=== PATIENT | female | born 1945 | race Caucasian/White ===

== ENCOUNTER → 2017-05-04 | Outpatient (CLI) | payer MEDICARE, OTHER ==
[~2017-05-04] MED LIST: ALPR-445 PO; ALPR-459 PO; AMI10; AMI10 PO; AMIT-104 PO; AZIT-1 PO; CALC-635 PO; CALC3.7S2 ENA; CAR6.25 PO; CHOL2000 PO; CHOL200022 PO; CITA-139 PO; DIA5 PO; DIAZ-308 PO; DOC100 PO; ERGO500037 PO; ESTR1.2525 PO; FLU10 PO; FLU180SY9 IM; FLU20 PO; FLU45SYR25 IM ONLY; GUAI600T57 PO; IBU200 PO; IBUP-1618 PO; IBUP400T13 PO; LACT1CAP6 PO; LISI-362 PO; LISI20TA29 PO; LOP2 PO; LORA-802 PO; MIR15 PO; MIRT-22 PO; MOM PO; MOMR; MORIR15 PO; MORS15 PO; MULT-885 PO; NEBI2.5T PO; NEBI2.5T5 PO; NEBI5TAB5 PO; OSC600 PO; OXYGEN INH; OXYGENHOME INH; PER PO; PNEU0.5D3 IM; POLY17PO33 PO; SACC250C PO; SIM20 PO; SIMV-42 PO; SIMV-49 PO; SIMV-54 PO; TRAM-627 PO; VITA1CAP46 PO; ZOLE5INF IV; [UNRECOGNIZED DRUG - CODE] PO; [UNRECOGNIZED DRUG - OTHER]; [UNRECOGNIZED DRUG - OTHER]
== END ==
LOC: RESP 01:52
PROVIDERS: ATTEND Internal Medicine
DX: J98.4 Other disorders of lung (principal)
CPT/HCPCS: 94060; 94726; 94729

== ENCOUNTER → 2017-05-06 | Outpatient (CLI) | payer MEDICARE, OTHER | LOC: CT 14:42 | PROVIDERS: ATTEND Internal Medicine | DX: Z02.9 Encounter for administrative examinations, unspecified (principal) ==

== ENCOUNTER → 2017-05-11 | Outpatient (CLI) | payer MEDICARE, OTHER ==
--- NOTE | 2017-05-11 15:45 | RADIOLOGY IMAGING REPORT ---
FACILITY: [facility] [place] PATIENT NAME: Taylor Norris : 1945 MR: [id number] V: [id number] EXAM DATE: ORDERING PHYSICIAN: LATASHA SIMPSON TECHNOLOGIST: Location: [facility] Patient: Taylor Norris : 1945 Visit/Account:[id number] Date of Sevice: 05/11/2017 CHEST W/O CONTRAST History: Lung nodule TECHNIQUE: Contiguous axial images were performed through the chest to the level of the adrenal gla nds. No IV contrast was administered. Coronal and sagittal reformatting was also performed. Dose Lowe ring Technique One of the following dose optimization techniques was utilized in the performance of this exam: Autom ated exposure control; adjustment of the mA and/or kV according to the patient's size; or use of an i terative reconstruction technique. Specific details can be referenced in the facility's radiology C T exam operational policy. COMPARISON STUDIES: December 10, 2016. Lungs / Pleura: The subtle interstitial prominence in the upper lobes appears to be chronic.. The previously noted groundglass opacity in the posterolateral right lower lobe is no longer seen. C oarse linear stranding in the left lower lobe remains stable and is consistent with scarring. There are mild dependent changes in the lower lobes. Mediastinum/nodes: Tiny calcified left hilar lymph node Heart and vessels: Moderate coronary artery vascular calcifications and coronary stent is again note d. There is aneurysmal dilatation of the ascending thoracic aorta measuring 4.2 cm in diameter and i s relatively unchanged. Moderate vascular calcifications throughout the thoracic aorta and branch ve ssels again noted Musculoskeletal / Body wall: There Is S-shaped scoliosis of the thoracal lumbar spine with moderate multilevel spondylotic changes.. Anterolisthesis of C7 with respect to T1 appears relatively unchang ed. Mild compression fracture involving the superior endplate of T12 also unchanged. 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
== END ==
LOC: CT 06:45
PROVIDERS: ATTEND Internal Medicine
DX: I71.2 Thoracic aortic aneurysm, without rupture (principal); I25.10 Atherosclerotic heart disease of native coronary artery without angina pectoris; M47.894 Other spondylosis, thoracic region; K44.9 Diaphragmatic hernia without obstruction or gangrene; R91.8 Other nonspecific abnormal finding of lung field; Z95.818 Presence of other cardiac implants and grafts
CPT/HCPCS: 71250

== ENCOUNTER → 2017-09-09 | Outpatient (CLI) | payer MEDICARE, OTHER ==
[~2017-09-09] MED LIST changes: -CITA-139 PO; +CITA-145 PO
== END ==
LOC: LAB 09:24
PROVIDERS: ATTEND Internal Medicine
DX: I10 Essential (primary) hypertension (principal); E78.00 Pure hypercholesterolemia, unspecified; M81.0 Age-related osteoporosis without current pathological fracture; I50.9 Heart failure, unspecified
CPT/HCPCS: 36415; 82040; 82247; 82310; 82374; 82435; 82465; 82565; 82947; 83718; 84075; 84132; 84155; 84295; 84450; 84460; 84478; 84520

== ENCOUNTER → 2018-03-09 | Outpatient (CLI) | payer MEDICARE, OTHER ==
[~2018-03-09] MED LIST changes: +CHOL200018 PO; -CHOL200022 PO
== END ==
LOC: LAB 09:10
PROVIDERS: ATTEND Internal Medicine
DX: E78.00 Pure hypercholesterolemia, unspecified (principal); I10 Essential (primary) hypertension; E55.9 Vitamin D deficiency, unspecified
CPT/HCPCS: 36415; 82040; 82247; 82306; 82310; 82374; 82435; 82465; 82565; 82947; 83718; 84075; 84132; 84155; 84295; 84450; 84460; 84478; 84520

== ENCOUNTER → 2018-06-27 | Outpatient (CLI) | payer MEDICARE, OTHER ==
[~2018-06-27] MED LIST changes: +ALPR-1 PO; +FLU180SY11 IM
[2018-06-27 11:35] LABS: PLATELET COUNT, AUTOMATED 350 K/uL (150-450)
== END ==
LOC: LAB 11:14
PROVIDERS: ATTEND Nurse Practitioner Primary Care
DX: R19.7 Diarrhea, unspecified (principal)
CPT/HCPCS: 82040; 82247; 82310; 82374; 82435; 82565; 82947; 84075; 84132; 84155; 84295; 84450; 84460; 84520; 85025

== ENCOUNTER → 2018-07-15 | Outpatient (REF) | payer MEDICARE, OTHER ==
[~2018-07-15] MED LIST changes: +DIPH-1 PO
== END ==
LOC: ZZSENDIN 14:28
PROVIDERS: ATTEND Nurse Practitioner Primary Care
DX: R19.7 Diarrhea, unspecified (principal)
CPT/HCPCS: 82274

== ENCOUNTER → 2018-08-17 | Outpatient (CLI) | payer MEDICARE, OTHER ==
[2018-08-17 11:44] LABS: PLATELET COUNT, AUTOMATED 283 K/uL (150-450)
== END ==
LOC: LAB 11:16
PROVIDERS: ATTEND Nurse Practitioner Family
DX: R19.5 Other fecal abnormalities (principal); K21.9 Gastro-esophageal reflux disease without esophagitis; R19.7 Diarrhea, unspecified; I10 Essential (primary) hypertension; J44.9 Chronic obstructive pulmonary disease, unspecified
CPT/HCPCS: 36415; 82040; 82247; 82310; 82374; 82435; 82565; 82947; 83540; 84075; 84132; 84155; 84295; 84450; 84460; 84520; 85025

== ENCOUNTER → 2018-09-21 | Outpatient (CLI) | payer MEDICARE, OTHER ==
[2018-09-21 12:14] LABS: PLATELET COUNT, AUTOMATED 411 K/uL (150-450)
== END ==
LOC: LAB 10:42
PROVIDERS: ATTEND Nurse Practitioner Primary Care
DX: R19.7 Diarrhea, unspecified (principal)
CPT/HCPCS: 36415; 82040; 82247; 82310; 82374; 82435; 82565; 82947; 84075; 84132; 84155; 84295; 84450; 84460; 84520; 85025